=== PATIENT | female | born 1975 | race Caucasian/White ===

== ENCOUNTER 2018-04-25 04:49 | Inpatient (IN) | payer MEDICAID ==
[2018-04-25] VITALS (13 sets, daily range): BP systolic 120–150; BP diastolic 26–97
[~2018-04-25] VITALS: Ht 154.9 cm; Wt 78.0 kg
[2018-04-25] MEDS ORDERED: ketorolac trometh inj. 60 MG/2 ML VIAL IM ONE (05:25)
[2018-04-25] MEDS ORDERED: ondansetron 4mg rapidly disintigrating tab PO ONE (05:25)
[2018-04-25] MEDS ORDERED: acetaminophen 325mg tablet PO ONE (05:25)
[2018-04-25 05:37] LABS: BASOPHILS % (AUTO) 0.5 % (0-1); EOSINOPHILS # (AUTO) 0.2 X10'3 (0-0.9); EOSINOPHILS % (AUTO) 2.7 % (0-6); HEMATOCRIT 36.1 % (35.0-45.0); HEMOGLOBIN 12.4 g/dl (12.0-16.0); LYMPHOCYTES % (AUTO) 24.2 % (21-51); MEAN CORPUSCULAR HEMOGLOBIN 29.7 PG (27.0-31.0); MEAN CORPUSCULAR HGB CONC 34.2 % (33.0-36.5); MEAN CORPUSCULAR VOLUME 86.8 FL (78-98); MEAN PLATELET VOLUME 8.9 FL (7.4-10.4); MONOCYTES # (AUTO) 0.7 X10'3 (0-0.9); MONOCYTES % (AUTO) 8.9 % (2-12); NEUTROPHILS # (AUTO) 5.3 X10'3 (1.8-7.7); NEUTROPHILS % (AUTO) 63.7 % (42-75); PLATELET COUNT 276 X10'3 (140-440); RED BLOOD COUNT 4.16 X10'6 (4.20-5.60); RED CELL DISTRIBUTION WIDTH 14.2 % (11.5-14.5); WHITE BLOOD COUNT 8.3 X10'3 (4.5-11.0)
[2018-04-25 05:40] LABS: URINE HCG NEGATIVE (NEG)
[2018-04-25 05:53] LABS: ALANINE AMINOTRANSFERASE 17 U/L (12-78); ALBUMIN 3.3 G/DL (3.4-5.0); ALBUMIN/GLOBULIN RATIO 0.9 (1.1-1.5); ALKALINE PHOSPHATASE 80 IU/L (46-116); ANION GAP 9 (8-16); ASPARTATE AMINO TRANSFERASE 11 U/L (10-37); BILIRUBIN,TOTAL 0.3 MG/DL (0.1-1.0); BLOOD UREA NITROGEN 14 MG/DL (7-18); BUN/CREATININE RATIO 11.7 (6.6-38.0); CALCIUM 8.6 MG/DL (8.5-10.1); CHLORIDE 103 MMOL/L (99-107); GLUCOSE 101 MG/DL (70-104); POTASSIUM 3.5 MMOL/L (3.5-5.1); SODIUM 138 MMOL/L (135-145); TOTAL CARBON DIOXIDE 26.2 MMOL/L (24-32); eGFR 49 ML/MIN
[2018-04-25 06:15] LABS: CLARITY,URINE CLOUDY (Clear); COLOR,URINE YELLOW (Yellow); GLUCOSE, URINE NEGATIVE (Neg); KETONES,URINE NEGATIVE (Neg); LEUKOCYTE ESTERASE ,URINE LARGE (Neg); NITRITES, URINE POSITIVE (Neg); OCCULT BLOOD,URINE LARGE (Neg); PH,URINE 6.5 (4.8-8.0); PROTEIN,URINE 100 mg/dl (Neg)
[2018-04-25] MEDS ORDERED: HYDR-3965 PO (06:17)
[2018-04-25] MEDS ORDERED: ONDA8TAB9 PO (06:17)
[2018-04-25 06:29] LABS: UA COLLECTION TYPE CLN CATCH MIDSTREAM
[2018-04-25 06:30] LABS: WBC,URINE TNTC /HPF (0-4)
[2018-04-25 06:31] LABS: BACTERIA,URINE 4+ /HPF (Neg); RBC,URINE 20-50 /HPF (0-2); SQUAMOUS EPITHELIAL CELL,UR FEW /LPF (FEW)
[2018-04-25] MEDS ORDERED: NO HOME MEDS (06:53)
[2018-04-25] MEDS ORDERED: CefTRIAXone 2gm/D5W 50ml 50 ML IV ONE (07:05)
[2018-04-25] MEDS ORDERED: normal saline 1000ml 1,000 ML IV SCH (07:32)
[2018-04-25] MEDS ORDERED: acetaminophen 325mg tablet PO PRN (07:35)
[2018-04-25] MEDS ORDERED: ondansetron/PF 4mg/2ml inj IV PRN ×2 (07:35→13:30)
[2018-04-25] MEDS ORDERED: morphine 4 MG/ML inj SYRINge IV PRN ×4 (07:35→13:30)
[2018-04-25] MEDS ORDERED: iohexol 300 MG/1 ML 50ml polymer ONE (12:43)
[2018-04-25] MEDS ORDERED: sevoflurane 250ml liquid IH ONE (13:06)
[2018-04-25] MEDS ORDERED: fentaNYL/PF 50MCG/1 ML 2ML syringe ONE (13:08)
[2018-04-25] MEDS ORDERED: propofol inj 20 ML IV ONE (13:09)
[2018-04-25] MEDS ORDERED: midazolam 2 mg/2 ml injection ONE (13:09)
[2018-04-25] MEDS ORDERED: ringers solution, lacted 1,000 ML IV SCH (13:29)
[2018-04-25] MEDS ORDERED: meperidine/PF 25mg/ml syringe IV PRN ×3 (13:30)
[2018-04-25] MEDS ORDERED: proCHLORperazine 10 MG/2 ml inj IV PRN (13:30)
[2018-04-25] MEDS ORDERED: cefTRIAXone 1g/NS 100ml IVPB 100 ML IV ONE (13:35)
[2018-04-26 00:27] VITALS: BP 123/78
[2018-04-26 05:19] LABS: BASOPHILS % (AUTO) 0.6 % (0-1); EOSINOPHILS # (AUTO) 0.3 X10'3 (0-0.9); EOSINOPHILS % (AUTO) 4.9 % (0-6); HEMATOCRIT 35.2 % (35.0-45.0); HEMOGLOBIN 11.7 g/dl (12.0-16.0); LYMPHOCYTES # (AUTO) 1.8 X10'3 (1.1-4.8); LYMPHOCYTES % (AUTO) 26.2 % (21-51); MEAN CORPUSCULAR HGB CONC 33.3 % (33.0-36.5); MEAN PLATELET VOLUME 8.9 FL (7.4-10.4); MONOCYTES # (AUTO) 0.5 X10'3 (0-0.9); MONOCYTES % (AUTO) 6.8 % (2-12); NEUTROPHILS # (AUTO) 4.1 X10'3 (1.8-7.7); NEUTROPHILS % (AUTO) 61.5 % (42-75); PLATELET COUNT 266 X10'3 (140-440); RED BLOOD COUNT 4.05 X10'6 (4.20-5.60); WHITE BLOOD COUNT 6.7 X10'3 (4.5-11.0)
[2018-04-26 05:54] LABS: ALBUMIN 2.7 G/DL (3.4-5.0); ANION GAP 7 (8-16); BLOOD UREA NITROGEN 12 MG/DL (7-18); BUN/CREATININE RATIO 11.5 (6.6-38.0); CALCIUM 8.1 MG/DL (8.5-10.1); CHLORIDE 105 MMOL/L (99-107); CREATININE 1.04 MG/DL (0.40-0.90); GLUCOSE 106 MG/DL (70-104); POTASSIUM 3.5 MMOL/L (3.5-5.1); SODIUM 139 MMOL/L (135-145); TOTAL CARBON DIOXIDE 27.2 MMOL/L (24-32); eGFR 58 ML/MIN
[2018-04-26 07:30] VITALS: BP 135/88
[2018-04-26] MEDS ORDERED: CefTRIAXone/D5W-Rocephin 1gm 50 ML IV SCH (08:00)
[2018-04-26] MEDS ORDERED: SULF1TAB49 PO (09:35)
[2018-04-26 11:00] VITALS: BP 120/85
== END 2018-04-26 11:24 | disposition home or self-care (01) | DRG 463 ==
LOC: ER 04:50 → ED HOLD 07:32 → SUR 3N 09:26
PROVIDERS: ADMIT Internal Medicine; ATTEND Internal Medicine
PROC: BT1D1ZZ Fluoroscopy of Right Kidney, Ureter and Bladder using Low Osmolar Contrast (ICD-10-PCS; 2018-04-25)
PROC: 0T768DZ Dilation of Right Ureter with Intraluminal Device, Via Natural or Artificial Opening Endoscopic (ICD-10-PCS; principal; 2018-04-25 13:06)
DX: N13.6 Pyonephrosis (principal); N17.9 Acute kidney failure, unspecified; F17.210 Nicotine dependence, cigarettes, uncomplicated
CPT/HCPCS: 36415; 74176; 76001; 80048; 80053; 81001; 81025; 85025; 85610; 87077; 87088; 87186; 96372; 96374; 99285; A4402; C1758; C1769; C2617; J0696; J1885; J2250; J2704; J3010; J7030; J7120; Q9967

== ENCOUNTER 2018-07-29 05:33 | Day surgery (SDC) | payer MEDICAID ==
[2018-07-22 15:58] LABS: BASOPHILS % (AUTO) 0.6 % (0-1); EOSINOPHILS # (AUTO) 0.3 X10'3 (0-0.9); LYMPHOCYTES # (AUTO) 1.8 X10'3 (1.1-4.8); LYMPHOCYTES % (AUTO) 29.2 % (21-51); MEAN CORPUSCULAR HEMOGLOBIN 29.1 PG (27.0-31.0); MEAN CORPUSCULAR HGB CONC 33.3 % (33.0-36.5); MEAN CORPUSCULAR VOLUME 87.3 FL (78-98); MEAN PLATELET VOLUME 8.9 FL (7.4-10.4); MONOCYTES # (AUTO) 0.5 X10'3 (0-0.9); MONOCYTES % (AUTO) 7.7 % (2-12); NEUTROPHILS # (AUTO) 3.5 X10'3 (1.8-7.7); NEUTROPHILS % (AUTO) 57.5 % (42-75); PRE OP HEMATOCRIT 39.7 % (35.0-45.0); PRE OP HEMOGLOBIN 13.2 g/dL (12.0-16.0); PRE OP PLATELET COUNT 341 X10'3 (140-440); RED BLOOD COUNT 4.54 X10'6 (4.20-5.60); RED CELL DISTRIBUTION WIDTH 13.6 % (11.5-14.5)
[2018-07-22 16:09] LABS: PRE OP PROTIME 10.1 SECONDS (9.0-12.0)
[2018-07-22 16:11] LABS: ALBUMIN 3.9 G/DL (3.4-5.0); ALBUMIN/GLOBULIN RATIO 1.1 (1.1-1.5); ALKALINE PHOSPHATASE 87 IU/L (46-116); BLOOD UREA NITROGEN 16 MG/DL (7-18); BUN/CREATININE RATIO 15.7 (6.6-38.0); CALCIUM 8.7 MG/DL (8.5-10.1); CHLORIDE 103 MMOL/L (99-107); CREATININE 1.02 MG/DL (0.40-0.90); PRE OP ALT 15 U/L (30-65); PRE OP ANION GAP 9 (8-16); PRE OP AST 12 U/L (10-37); PRE OP BILIRUB, TOTAL 0.2 MG/DL (0.0-1.0); PRE OP GLUCOSE 93 MG/DL (70-104); PRE OP POTASSIUM 3.5 MMOL/L (3.4-5.1); PRE OP SODIUM 139 MMOL/L (135-145); TOTAL CARBON DIOXIDE 26.6 MMOL/L (24-32); TOTAL PROTEIN 7.6 G/DL (6.4-8.2); eGFR 59 ML/MIN
[~2018-07-29] VITALS: Ht 157.5 cm; Wt 84.4 kg
[2018-07-29] VITALS (19 sets, daily range): BP systolic 113–138; BP diastolic 74–92
[~2018-07-29 05:33] MED LIST: CEPH500C5 PO; GENTAMICIN IV ONE; IBUP-24 PO; NORMAL SALINE IV ONE; albuterol 2.5 MG/3 ML nebule NEB ONE; ampicillin inj 1 GM in normal saline 100ml IV soln 100 ML IV ONE; famotidine 20mg tablet PO ONE; ringers solution, lacted 1,000 ML IV SCH
[2018-07-29] MEDS ORDERED: LIDOcaine 1% (10mg/ml) 2ml vial ONE (05:48)
[2018-07-29] MEDS ORDERED: methylene blue (5mg/ml) 50mg/10ml ampul IV ONE (06:47)
[2018-07-29] MEDS ORDERED: iohexol 300 MG/1 ML 50ml polymer ONE ×2 (06:47→08:56)
[2018-07-29] MEDS ORDERED: fentaNYL /PF 50mcg/ml 5ml ampule ONE (07:30)
[2018-07-29] MEDS ORDERED: MIDAZolam 5mg/5ml vial ONE (07:30)
[2018-07-29] MEDS ORDERED: rocuronium 10mg/ml inj IV ONE ×2 (07:31→08:43)
[2018-07-29] MEDS ORDERED: propofol inj 20 ML IV ONE (07:31)
[2018-07-29] MEDS ORDERED: LIDOcaine 2% (20mg/ml) 5ml vial ONE (07:32)
[2018-07-29] MEDS ORDERED: ketorolac trometh. 30mg/ml inj. ONE ×2 (07:37→09:52)
[2018-07-29] MEDS ORDERED: sevoflurane 250ml liquid IH ONE (07:37)
[2018-07-29] MEDS ORDERED: dexamethasone sod phosphate 10mg/ml inj ONE (07:37)
[2018-07-29] MEDS ORDERED: ondansetron/PF 4mg/2ml inj ONE (07:37)
[2018-07-29] MEDS ORDERED: ringers solution, lacted 1,000 ML IV SCH (09:42)
[2018-07-29] MEDS ORDERED: morphine 4 MG/ML inj SYRINge IV PRN ×2 (09:45)
[2018-07-29] MEDS ORDERED: ondansetron/PF 4mg/2ml inj IV PRN ×2 (09:45→10:00)
[2018-07-29] MEDS ORDERED: proCHLORperazine 10 MG/2 ml inj IV PRN (09:45)
[2018-07-29] MEDS ORDERED: meperidine/PF 25mg/ml syringe IV PRN ×3 (09:45)
[2018-07-29] MEDS ORDERED: HYDROcodone/acetaminophen 10/325mg tab PO PRN (10:00)
[2018-07-29] MEDS: potassium cl 20mEq in 1/2 NS 1,000 ML IV SCH ×2 (10:00→19:58)
[2018-07-29] MEDS ORDERED: ibuprofen 200mg tablet PO PRN (10:45)
[2018-07-29] MEDS: HYDROcodone/acetaminophen 10/325mg tab PO PRN ×2 (11:26→22:17)
[2018-07-29] MEDS: ampicillin inj 1 GM in normal saline 100ml IV soln 100 ML IV SCH ×2 (14:44→19:58)
[2018-07-29] MEDS ORDERED: gentamicin 40 MG/1 ML inj IV SCH (16:00)
[2018-07-29] MEDS ORDERED: gentamicin in saline, iso-osm 80 MG/50 ML premix IV SCH (16:00)
[2018-07-29] MEDS: NORMAL SALINE IV SCH ×2 (16:06→23:51)
[2018-07-29] MEDS: GENTAMICIN IV SCH ×2 (16:06→23:51)
[2018-07-29] MEDS ORDERED: HYDROmorphone inj. 0.5 MG/0.5 ML DISP.SYRIN IV PRN (18:35)
[2018-07-29] MEDS: HYDROmorphone 1 mg/ml syringe IV PRN (20:03)
[2018-07-30] VITALS: BP 128/75
[2018-07-30] MEDS: HYDROmorphone 1 mg/ml syringe IV PRN ×3 (00:20→08:25)
[2018-07-30] MEDS: ampicillin inj 1 GM in normal saline 100ml IV soln 100 ML IV SCH ×2 (02:11→08:25)
[2018-07-30 04:00] VITALS: BP 127/89
[2018-07-30 05:12] LABS: BASOPHILS % (AUTO) 0.5 % (0-1); EOSINOPHILS # (AUTO) 0.2 X10'3 (0-0.9); EOSINOPHILS % (AUTO) 1.9 % (0-6); HEMATOCRIT 36.3 % (35.0-45.0); HEMOGLOBIN 12.1 g/dl (12.0-16.0); LYMPHOCYTES # (AUTO) 1.2 X10'3 (1.1-4.8); LYMPHOCYTES % (AUTO) 13.1 % (21-51); MEAN CORPUSCULAR HEMOGLOBIN 29.2 PG (27.0-31.0); MEAN CORPUSCULAR HGB CONC 33.3 % (33.0-36.5); MEAN CORPUSCULAR VOLUME 87.6 FL (78-98); MEAN PLATELET VOLUME 8.9 FL (7.4-10.4); MONOCYTES # (AUTO) 0.6 X10'3 (0-0.9); MONOCYTES % (AUTO) 5.8 % (2-12); NEUTROPHILS # (AUTO) 7.4 X10'3 (1.8-7.7); NEUTROPHILS % (AUTO) 78.7 % (42-75); PLATELET COUNT 256 X10'3 (140-440); RED BLOOD COUNT 4.14 X10'6 (4.20-5.60); RED CELL DISTRIBUTION WIDTH 13.3 % (11.5-14.5); WHITE BLOOD COUNT 9.4 X10'3 (4.5-11.0)
[2018-07-30 05:34] LABS: ALBUMIN 2.8 G/DL (3.4-5.0); ANION GAP 10 (8-16); BLOOD UREA NITROGEN 13 MG/DL (7-18); BUN/CREATININE RATIO 12.9 (6.6-38.0); CALCIUM 8.2 MG/DL (8.5-10.1); CHLORIDE 104 MMOL/L (99-107); CREATININE 1.01 MG/DL (0.40-0.90); GLUCOSE 110 MG/DL (70-104); POTASSIUM 4.3 MMOL/L (3.5-5.1); SODIUM 141 MMOL/L (135-145); TOTAL CARBON DIOXIDE 26.7 MMOL/L (24-32); eGFR 60 ML/MIN
[2018-07-30] MEDS: potassium cl 20mEq in 1/2 NS 1,000 ML IV SCH ×2 (05:47→08:24)
[2018-07-30 07:00] VITALS: BP_SYST 117; BP_SYST 124; BP_DIAS 61; BP_DIAS 76
[2018-07-30] MEDS: GENTAMICIN IV SCH (09:40)
[2018-07-30] MEDS: NORMAL SALINE IV SCH (09:40)
[2018-07-30 11:00] VITALS: BP 137/94
[2018-07-30] MEDS ORDERED: DOCU-28 PO (11:08)
[2018-07-30] MEDS ORDERED: AMOX-419 PO (11:08)
[2018-07-30] MEDS ORDERED: HYDR-4383 PO (11:08)
== END 2018-07-30 13:20 | disposition home or self-care (01) ==
LOC: PAS 05:33 → SUR 3N 09:59 → PAS 07-30 13:20
PROVIDERS: ATTEND Urology
DX: N20.0 Calculus of kidney (principal); E66.9 Obesity, unspecified; F17.210 Nicotine dependence, cigarettes, uncomplicated; Z87.442 Personal history of urinary calculi; Z79.1 Long term (current) use of non-steroidal anti-inflammatories (NSAID); Z79.2 Long term (current) use of antibiotics; Z68.34 Body mass index [BMI] 34.0-34.9, adult; Z87.440 Personal history of urinary (tract) infections; Z98.51 Tubal ligation status; Z79.891 Long term (current) use of opiate analgesic; Z72.89 Other problems related to lifestyle; Z95.828 Presence of other vascular implants and grafts; Z98.890 Other specified postprocedural states; Z79.899 Other long term (current) drug therapy; Z80.3 Family history of malignant neoplasm of breast
CPT/HCPCS: 36415; 50080; 50395; 71046; 76001; 80048; 80053; 85025; 85610; 85730; 86885; 86900; 86901; 93005; A6449; C1894; C2617; J0290; J1170; J1580; J1885; J2001; J2175; J2250; J2704; J3010; J3490; J7030; J7120; Q9967; A4344; A4355; A4402; A7000; C1729; C1758; C1769; C2628; G0378; J1100; J2405

== ENCOUNTER 2020-08-21 17:00 | Emergency (ER) | payer MEDICAID, OTHER ==
[~2020-08-21] VITALS: Ht 154.9 cm; Wt 75.0 kg
[~2020-08-21 17:00] MED LIST changes: +ALBU18HF2 INH; -CEPH500C5 PO; -GENTAMICIN IV ONE; +HYDR-4383 PO; -IBUP-24 PO; +LACT1CAP26 PO; -NORMAL SALINE IV ONE; -albuterol 2.5 MG/3 ML nebule NEB ONE; -ampicillin inj 1 GM in normal saline 100ml IV soln 100 ML IV ONE; -famotidine 20mg tablet PO ONE; -ringers solution, lacted 1,000 ML IV SCH
[2020-08-21 17:09] VITALS: BP 121/80
== END 2020-08-21 18:09 | disposition home or self-care (01) ==
LOC: ER 17:00
DX: R09.89 Other specified symptoms and signs involving the circulatory and respiratory systems (principal); M54.2 Cervicalgia; R05 Cough; M79.651 Pain in right thigh; R43.8 Other disturbances of smell and taste; Z20.828 Contact with and (suspected) exposure to other viral communicable diseases; F17.200 Nicotine dependence, unspecified, uncomplicated; V87.7XXA Person injured in collision between other specified motor vehicles (traffic), initial encounter; Y93.89 Activity, other specified; Y92.89 Other specified places as the place of occurrence of the external cause; Y99.8 Other external cause status; Z87.442 Personal history of urinary calculi; Z98.890 Other specified postprocedural states; Z79.899 Other long term (current) drug therapy
CPT/HCPCS: 36415; 87635; 99283

== ENCOUNTER 2020-09-16 20:22 | Emergency (ER) | payer MEDICAID, OTHER ==
[~2020-09-16] VITALS: Ht 154.9 cm; Wt 90.6 kg
[2020-09-16 20:40] VITALS: BP 181/117
[2020-09-16] MEDS ORDERED: proparacaine 0.5% ophthalmic drops 15ml EACHEYE ONE (21:10)
[2020-09-16 21:16] LABS: BASOPHILS # (AUTO) 0.1 X10'3 (0-0.2); BASOPHILS % (AUTO) 0.7 % (0-1); EOSINOPHILS # (AUTO) 0.3 X10'3 (0-0.9); EOSINOPHILS % (AUTO) 3.8 % (0-6); HEMATOCRIT 41.7 % (35.0-45.0); HEMOGLOBIN 13.8 g/dl (12.0-16.0); LYMPHOCYTES # (AUTO) 1.3 X10'3 (1.1-4.8); LYMPHOCYTES % (AUTO) 15.8 % (21-51); MEAN CORPUSCULAR HGB CONC 33.1 g/dL (33.0-36.5); MEAN CORPUSCULAR VOLUME 90.4 FL (78-98); MEAN PLATELET VOLUME 8.3 FL (7.4-10.4); MONOCYTES # (AUTO) 0.4 X10'3 (0-0.9); NEUTROPHILS # (AUTO) 6.1 X10'3 (1.8-7.7); NEUTROPHILS % (AUTO) 74.7 % (42-75); PLATELET COUNT 309 X10'3 (140-440); RED BLOOD COUNT 4.61 X10'6 (4.20-5.60); RED CELL DISTRIBUTION WIDTH 14.2 % (11.5-14.5); WHITE BLOOD COUNT 8.1 X10'3 (4.5-11.0)
[2020-09-16 21:29] LABS: ALANINE AMINOTRANSFERASE 21 U/L (12-78); ALBUMIN 3.7 G/DL (3.4-5.0); ALBUMIN/GLOBULIN RATIO 0.9 (1.1-1.5); ALKALINE PHOSPHATASE 95 IU/L (46-116); ANION GAP 11 (8-16); ASPARTATE AMINO TRANSFERASE 12 U/L (10-37); BILIRUBIN,TOTAL 0.2 MG/DL (0.1-1.0); BLOOD UREA NITROGEN 17 MG/DL (7-18); BUN/CREATININE RATIO 13.7 (6.6-38.0); CALCIUM 8.5 MG/DL (8.5-10.1); CHLORIDE 104 MMOL/L (99-107); CREATININE 1.24 MG/DL (0.40-0.90); GLUCOSE 155 MG/DL (70-104); POTASSIUM 3.7 MMOL/L (3.5-5.1); SODIUM 140 MMOL/L (135-145); TOTAL CARBON DIOXIDE 25.5 MMOL/L (24-32); TOTAL PROTEIN 7.6 G/DL (6.4-8.2); eGFR 47 ML/MIN
[2020-09-16 21:37] LABS: ETHANOL < 0.010 GM/DL (0.0-0.010)
== END 2020-09-16 22:46 | disposition home or self-care (01) ==
LOC: ER 20:22
DX: H53.9 Unspecified visual disturbance (principal); H57.89 Other specified disorders of eye and adnexa; H57.13 Ocular pain, bilateral; Z87.442 Personal history of urinary calculi
CPT/HCPCS: 36415; 71045; 80053; 80320; 83880; 84443; 84484; 85025; 85651; 93005; 99285

== ENCOUNTER 2023-02-09 19:49 | Emergency (ER) | payer MEDICAID ==
[~2023-02-09] VITALS: Ht 154.9 cm; Wt 77.3 kg
[2023-02-09 20:18] VITALS: BP 171/102
[2023-02-09 20:37] LABS: BASOPHILS % (AUTO) 0.2 % (0-1); EOSINOPHILS # (AUTO) 0.3 X10'3 (0-0.9); EOSINOPHILS % (AUTO) 2.3 % (0-6); HEMATOCRIT 37.3 % (35.0-45.0); HEMOGLOBIN 12.4 g/dl (12.0-16.0); LYMPHOCYTES # (AUTO) 1.2 X10'3 (1.1-4.8); LYMPHOCYTES % (AUTO) 10.4 % (21-51); MEAN CORPUSCULAR HEMOGLOBIN 29.2 PG (27.0-31.0); MEAN CORPUSCULAR HGB CONC 33.3 g/dL (33.0-36.5); MEAN CORPUSCULAR VOLUME 87.8 FL (78-98); MEAN PLATELET VOLUME 7.9 FL (7.4-10.4); MONOCYTES # (AUTO) 0.9 X10'3 (0-0.9); MONOCYTES % (AUTO) 7.7 % (2-12); NEUTROPHILS # (AUTO) 9.4 X10'3 (1.8-7.7); NEUTROPHILS % (AUTO) 79.4 % (42-75); PLATELET COUNT 305 X10'3 (140-440); RED BLOOD COUNT 4.25 X10'6 (4.20-5.60); RED CELL DISTRIBUTION WIDTH 14.3 % (11.5-14.5); WHITE BLOOD COUNT 11.8 X10'3 (4.5-11.0)
[2023-02-09 20:51] LABS: ALANINE AMINOTRANSFERASE 18 U/L (12-78); ALBUMIN 3.2 G/DL (3.4-5.0); ALBUMIN/GLOBULIN RATIO 0.9 (1.1-1.5); ALKALINE PHOSPHATASE 94 IU/L (46-116); ANION GAP 6 (8-16); ASPARTATE AMINO TRANSFERASE 12 U/L (10-37); BILIRUBIN,TOTAL 0.2 MG/DL (0.1-1.0); BLOOD UREA NITROGEN 14 MG/DL (7-18); BUN/CREATININE RATIO 14.1 (10.0-20.0); CALCIUM 8.6 MG/DL (8.5-10.1); CHLORIDE 104 MMOL/L (99-107); CREATININE 0.99 MG/DL (0.40-0.90); GLUCOSE 89 MG/DL (70-104); LIPASE 70 U/L (73-393); POTASSIUM 3.1 MMOL/L (3.5-5.1); SODIUM 139 MMOL/L (135-145); TOTAL CARBON DIOXIDE 29.2 MMOL/L (24-32); TOTAL PROTEIN 6.8 G/DL (6.4-8.2); eGFR 60 ML/MIN
== END 2023-02-09 23:07 | disposition left against medical advice (07) ==
LOC: ER 19:50
DX: R10.9 Unspecified abdominal pain (principal); Z53.21 Procedure and treatment not carried out due to patient leaving prior to being seen by health care provider
CPT/HCPCS: 36415; 80053; 83690; 85025; 99281

== ENCOUNTER 2023-02-10 20:37 | Emergency (ER) | payer MEDICAID ==
[~2023-02-10] VITALS: Ht 157.5 cm; Wt 77.3 kg
[2023-02-10 21:32] LABS: CLARITY,URINE CLOUDY (Clear); COLOR,URINE YELLOW (Yellow); GLUCOSE, URINE NEGATIVE (Neg); KETONES,URINE NEGATIVE (Neg); LEUKOCYTE ESTERASE ,URINE MODERATE (Neg); NITRITES, URINE POSITIVE (Neg); OCCULT BLOOD,URINE SMALL (Neg); PROTEIN,URINE TRACE mg/dl (Neg); UROBILINOGEN,URINE 0.2 E.U/dL (0.2-1.0)
[2023-02-10 21:33] LABS: URINE HCG NEGATIVE (NEG)
[2023-02-10 21:41] LABS: UA COLLECTION TYPE CLN CATCH MIDSTREAM
[2023-02-10 21:44] LABS: BACTERIA,URINE 4+ /HPF (Neg); SQUAMOUS EPITHELIAL CELL,UR FEW /LPF (FEW); TRANSITIONAL EPI CELLS,URINE FEW /HPF; WBC,URINE TNTC /HPF (0-4)
[2023-02-10 21:47] LABS: BASOPHILS % (AUTO) 0.4 % (0-1); EOSINOPHILS # (AUTO) 0.3 X10'3 (0-0.9); EOSINOPHILS % (AUTO) 2.3 % (0-6); HEMATOCRIT 36.3 % (35.0-45.0); HEMOGLOBIN 12.1 g/dl (12.0-16.0); LYMPHOCYTES # (AUTO) 1.3 X10'3 (1.1-4.8); LYMPHOCYTES % (AUTO) 10.6 % (21-51); MEAN CORPUSCULAR HEMOGLOBIN 29.2 PG (27.0-31.0); MEAN CORPUSCULAR HGB CONC 33.3 g/dL (33.0-36.5); MEAN CORPUSCULAR VOLUME 87.6 FL (78-98); MEAN PLATELET VOLUME 8.1 FL (7.4-10.4); MONOCYTES # (AUTO) 0.9 X10'3 (0-0.9); MONOCYTES % (AUTO) 7.7 % (2-12); NEUTROPHILS # (AUTO) 9.6 X10'3 (1.8-7.7); PLATELET COUNT 301 X10'3 (140-440); RED BLOOD COUNT 4.15 X10'6 (4.20-5.60); RED CELL DISTRIBUTION WIDTH 13.9 % (11.5-14.5); WHITE BLOOD COUNT 12.1 X10'3 (4.5-11.0)
[2023-02-10 22:01] LABS: ALANINE AMINOTRANSFERASE 23 U/L (12-78); ALBUMIN 3.2 G/DL (3.4-5.0); ALBUMIN/GLOBULIN RATIO 0.8 (1.1-1.5); ALKALINE PHOSPHATASE 94 IU/L (46-116); ANION GAP 4 (8-16); ASPARTATE AMINO TRANSFERASE 13 U/L (10-37); BILIRUBIN,TOTAL 0.2 MG/DL (0.1-1.0); BLOOD UREA NITROGEN 13 MG/DL (7-18); BUN/CREATININE RATIO 13.5 (10.0-20.0); CALCIUM 8.8 MG/DL (8.5-10.1); CHLORIDE 105 MMOL/L (99-107); CREATININE 0.96 MG/DL (0.40-0.90); GLUCOSE 98 MG/DL (70-104); LIPASE 74 U/L (73-393); POTASSIUM 3.4 MMOL/L (3.5-5.1); SODIUM 138 MMOL/L (135-145); TOTAL CARBON DIOXIDE 29.4 MMOL/L (24-32); eGFR 62 ML/MIN
[2023-02-10 22:35] VITALS: BP 184/108
[2023-02-10] MEDS ORDERED: ibuprofen tablet 400 MG TABLET PO STA (23:16)
[2023-02-11] MEDS ORDERED: CEPH500C2 PO (00:29)
[2023-02-11] MEDS ORDERED: cephalexin 250mg capsule PO ONE (00:30)
== END 2023-02-11 00:45 | disposition home or self-care (01) ==
LOC: ER 20:38
DX: N39.0 Urinary tract infection, site not specified (principal); R31.9 Hematuria, unspecified; Z87.442 Personal history of urinary calculi; Z79.899 Other long term (current) drug therapy
CPT/HCPCS: 36415; 76856; 80053; 81001; 81025; 83690; 85025; 87077; 87088; 87186; 93976; 99284

== ENCOUNTER 2023-05-01 21:57 | Emergency (ER) | payer MEDICAID | END 2023-05-02 02:12 | disposition left against medical advice (07) | LOC: ER 21:57 | DX: R51.9 Headache, unspecified (principal); Z53.21 Procedure and treatment not carried out due to patient leaving prior to being seen by health care provider ==

== ENCOUNTER 2025-02-13 14:43 | Emergency (ER) | payer MEDICAID, OTHER ==
[~2025-02-13] VITALS: Ht 156.2 cm; Wt 89.1 kg
[2025-02-13 15:04] VITALS: TEMP 97.9
--- NOTE | 2025-02-13 15:23 | RADIOLOGY REPORT ---
EXAM: DI CHEST,SINGLE VIEW Indication: CP Technique: Single frontal view of the chest was obtained Comparison: None FINDINGS: Lines and Tubes: None Lungs: No focal consolidation. Pleura: No effusion. No pneumothorax. Cardiomediastinal contours: Unremarkable Bones: No acute osseous abnormality. IMPRESSION: No acute cardiopulmonary disease.
[2025-02-13 16:08] LABS: BASOPHILS # (AUTO) 0.1 X10'3 (0-0.2); BASOPHILS % (AUTO) 0.9 % (0-1); EOSINOPHILS # (AUTO) 0.2 X10'3 (0-0.9); EOSINOPHILS % (AUTO) 2.5 % (0-6); HEMATOCRIT 39.2 % (35.0-45.0); HEMOGLOBIN 13.2 g/dl (12.0-16.0); LYMPHOCYTES # (AUTO) 1.3 X10'3 (1.1-4.8); LYMPHOCYTES % (AUTO) 14.3 % (21-51); MEAN CORPUSCULAR HEMOGLOBIN 29.7 PG (27.0-31.0); MEAN CORPUSCULAR HGB CONC 33.7 g/dL (33.0-36.5); MEAN CORPUSCULAR VOLUME 88.2 FL (78-98); MEAN PLATELET VOLUME 8.6 FL (7.4-10.4); MONOCYTES # (AUTO) 0.5 X10'3 (0-0.9); NEUTROPHILS # (AUTO) 6.7 X10'3 (1.8-7.7); NEUTROPHILS % (AUTO) 76.3 % (42-75); PLATELET COUNT 331 X10'3 (140-440); RED BLOOD COUNT 4.45 X10'6 (4.20-5.60); RED CELL DISTRIBUTION WIDTH 13.9 % (11.5-14.5); WHITE BLOOD COUNT 8.8 X10'3 (4.5-11.0)
[2025-02-13 16:35] LABS: ALANINE AMINOTRANSFERASE 16 U/L (12-78); ALBUMIN 3.2 G/DL (3.4-5.0); ALBUMIN/GLOBULIN RATIO 0.8 (1.1-1.5); ALKALINE PHOSPHATASE 112 IU/L (46-116); ANION GAP 9 (8-16); ASPARTATE AMINO TRANSFERASE 20 U/L (10-37); BILIRUBIN,TOTAL 0.2 MG/DL (0.1-1.0); BLOOD UREA NITROGEN 16 MG/DL (7-18); BUN/CREATININE RATIO 11.8 (10.0-20.0); CALCIUM 8.9 MG/DL (8.5-10.1); CHLORIDE 101 MMOL/L (99-107); CREATININE 1.36 MG/DL (0.40-0.90); GLUCOSE 116 MG/DL (70-104); POTASSIUM 3.7 MMOL/L (3.5-5.1); SODIUM 138 MMOL/L (135-145); TOTAL CARBON DIOXIDE 28.1 MMOL/L (24-32); TOTAL PROTEIN 7.2 G/DL (6.4-8.2); eCRCL 38 ML/MIN; eGFR 41 ML/MIN
[2025-02-13 16:42] LABS: PRO BRAIN NATRIURETIC PEPTIDE 510 PG/ML (0-125)
--- NOTE | 2025-02-13 17:11 | Physician Documentation ---
History of Present Illness ~ Chief Complaint: Hypertension Stated Complaint: DIZZINESS/BLURRED VISION/HIGH BP Time Seen by MD: 16:36 Primary Medical Doctor: ROZINA BEARDEN IN HPI 49-year-old female presenting with complaints of high blood pressure. Patient states that over the past three days her blood pressure has been very elevated. She also states that she has not been feel a right over the past several weeks. She states that she has gained a whole bunch of weight without increasing the amount of food that she eats. Additionally she states that she occasionally gets palpitations in her chest and also been having some chest pressure that comes and goes. Occasionally she will get short of breath. She denies any fever, chills or any other associated symptoms. She states that she has a growth on her thyroid that needs to be removed but has not followed up for this yet. Medication Reconciliation Allergies: Coded Allergies: No Known Allergies (Unverified , 02/09/23) Scheduled Amlodipine Besylate (Amlodipine Besylate), 1 TABLET PO DAILY Hydrocodone/Acetaminophen ([place] 5-325 Tablet), 1-2 TAB PO Q4HPRN Lactobacillus Rhamnosus (Culturelle), 10,000 MMU PO Q12H Scheduled PRN Albuterol Sulfate (Ventolin Hfa), 2 PUFFS INH Q4HPRN PRN for SOB or wheezing Past Medical History Past Medical History: No Pertinent History, Kidney Stones Past Surgical History: other Alcohol Use: None Lives In: Home Review of Systems All Other Systems at this time: Reviewed and Negative Physical Exam Vital Signs: Temperature: 97.9, Heart Rate: 84, Respiratory Rate: 18, BP: 156/109, Pulse Oximetry: 98, Weight: 89.100 Oxygen Flow Rate: 0 Physical Exam I have reviewed the triage vitals. CONST: Well developed and well nourished. In no acute distress HENT: Head Atraumatic EYES: Pupils are equal, round and reactive to light. Normal conjunctiva NECK: Normal range of motion. Supple. CARDIO: Normal rate and regular rhythm. No murmurs, rubs, or gallops. S1, S2. PULM/CHEST: No respiratory distress. Lungs clear to auscultation. No wheeze ABD: Soft and nontender. Nondistended. Bowel sounds normal. No guarding. : Exam deferred MSK: No edema. No deformity. NEURO: Alert and oriented to person, place and time. Moving all extremities SKIN: Warm and dry. PSYCH: Normal mood and affect. Good eye contact. Progress Results/Orders Results/Orders Orders - JESUS DOLAN MD T3 Total (02/13/25 17:05) Vital Signs 02/13/25 02/13/25 02/13/25 02/13/25 15:04 17:02 18:00 18:31 Temp 97.9 Pulse 95 84 73 75 Resp 16 18 18 B/P (MAP) 156/65 156/109 (125) 191/116 (141) Pulse Ox 98 95 O2 Flow Rate 0 02/13/25 19:44 Pulse 74 Resp 15 B/P (MAP) 176/105 Pulse Ox 98 Laboratory Tests Test 02/13/25 15:44 02/13/25 17:29 White Blood Count 8.8 Red Blood Count 4.45 Hemoglobin 13.2 Hematocrit 39.2 Mean Corpuscular Volume 88.2 Mean Corpuscular Hemoglobin 29.7 Mean Corpuscular Hemoglobin Concent 33.7 Red Cell Distribution Width 13.9 Platelet Count 331 Mean Platelet Volume 8.6 Neutrophils (%) (Auto) 76.3 H Lymphocytes (%) (Auto) 14.3 L Monocytes (%) (Auto) 6.0 Eosinophils (%) (Auto) 2.5 Basophils (%) (Auto) 0.9 Neutrophils # (Auto) 6.7 Lymphocytes # (Auto) 1.3 Monocytes # (Auto) 0.5 Eosinophils # (Auto) 0.2 Basophils # (Auto) 0.1 CBC Comment Sodium Level 138 Potassium Level 3.7 Chloride Level 101 Carbon Dioxide Level 28.1 Anion Gap 9 Blood Urea Nitrogen 16 Creatinine 1.36 H Estimated GFR/1.73 m2 41 BUN/Creatinine Ratio 11.8 Glucose Level 116 H Calcium Level 8.9 Magnesium Level 2.0 Total Bilirubin 0.2 Aspartate Amino Transf (AST/SGOT) 20 Alanine Aminotransferase (ALT/SGPT) 16 Alkaline Phosphatase 112 Troponin I High Sensitivity 12 10 Pro-B-Type Natriuretic Peptide 510 H Total Protein 7.2 Albumin 3.2 L Globulin 4.0 Albumin/Globulin Ratio 0.8 L Thyroid Stimulating Hormone (TSH) 1.38 Free Thyroxine 0.91 Chemistry Comments Troponin I High Sens Percent Delta 16 Troponin I Hi Sens Absolute Change -2 EKG/XRAY/CT/US/VASC/MRI EKG : Indication: shortness of breath EKG Rate: 92 EKG: NSR EKG Blocks: none [place]: normal Additional Comment Interpreted by EDMD Chest X-Ray : Additional Comments EXAM: DI CHEST,SINGLE VIEW Indication: CP Technique: Single frontal view of the chest was obtained Comparison: None FINDINGS: Lines and Tubes: None Lungs: No focal consolidation. Pleura: No effusion. No pneumothorax. Cardiomediastinal contours: Unremarkable Bones: No acute osseous abnormality. IMPRESSION: No acute cardiopulmonary disease. Medical Decision Making Findings Received care of patient from Dr. Dumont Reviewed patient's case and had a conversation with her regarding blood pressures. No evidence of end-organ damage she is not suffering from hypertensive emergency. Discussed with her the need to start a blood pressure log and to obtain primary care for management of blood pressure. Lifestyle mo difications also discussed. Departure Disposition: HOME / SELF CARE / HOMELESS Impression: Primary Impression: Uncontrolled hypertension Condition: Fair Discharge Instructions: Hypertension, Adult, [id number] Additional Instructions: Begin a blood pressure log as discussed. Obtain primary care physician. Referrals: NO PRIMARY CARE PROVIDER (PCP) Prescriptions Amlodipine Besylate (Amlodipine Besylate) 10 Mg Tablet 1 TABLET PO DAILY, #90 TABLET 1 Refill Prov: MORENO EMERSON MD 02/13/25 Education Educated: Patient Educated regarding: diagnosis, treatment, need for follow up Signature Scribe Signature: No scribe Attestation: The note accurately reflects work and decisions made by me.Moreno Emesron MD 02/13/25 19:27 JESUS DOLAN MD February 13, 2025 17:11 MORENO EMERSON MD February 13, 2025 19:27
[2025-02-13 17:38] LABS: FREE T4 (FREE THYROXINE) 0.91 NG/DL (0.73-1.40); THYROID STIMULATING HORMONE 1.38 ulU/ml (0.34-4.50)
--- NOTE | 2025-02-13 18:07 | ELECTROCARDIOGRAPH REPORT ---
[facility] Test Date: 2025-02-13 Test Time: 14:45:21 Pat Name: VIDA VENTURA Department: EMERGENCY ROOM Room: Gender: F Supervisor Ride Assembly: KALIN : 1975 Requested By: MACK ALATORRE Order Number: [id number] Reading MD: Measurements Intervals [place] Rate: 102 P: 53 SD: 140 QRS: 42 QRSD: 97 T: 42 QT: 351 QTc: 458 Interpretive Statements Sinus tachycardia Probable anteroseptal infarct, old Please click the below link to view image of tracing.
[2025-02-13] MEDS: amLODIPine 5mg tablet PO ONE (18:31)
[2025-02-13] MEDS ORDERED: AMLO10TA PO (19:27)
[2025-02-13 19:44] VITALS: BP 176/105; PULSE 74; RESP 15; O2SAT 98
== END 2025-02-13 19:46 | disposition home or self-care (01) ==
LOC: ER 14:43
DX: I10 Essential (primary) hypertension (principal); Z79.899 Other long term (current) drug therapy; Z87.442 Personal history of urinary calculi
CPT/HCPCS: 36415; 71045; 80053; 83735; 83880; 84439; 84443; 84480; 84484; 85025; 93005; 99285